=== PATIENT | male | born 1990 | race Caucasian/White ===

== ENCOUNTER 2017-03-21 00:47 | Emergency (ER) | payer MEDICAID, OTHER ==
[~2017-03-21] VITALS: Ht 188 cm; Wt 77.3 kg
[2017-03-21 00:57] VITALS: BP 125/80; PULSE 99; RESP 18; O2SAT 98
[2017-03-21 02:19] LABS: BASOPHILS % (AUTO) 0.7 % (0-3); EOSINOPHILS % (AUTO) 3.5 % (0-5); MONOCYTES % (AUTO) 7.6 % (4-12); Mean Corpuscular Hemoglobin 31.8 pg (27.0-35.0); Mean Corpuscular Volume 93.3 fL (81-100); NEUTROPHILS % (AUTO) 53.4 % (40-74); Platelet Count 268 bil/L (150-400)
--- NOTE | 2017-03-21 02:19 | ED.REPORT ---
HPI-Overdose/Alcohol Toxicity Date of Service Mar 21, 2017 ED Provider: Jerry Szymanski MD Pt is a 26 year old male with a history of alcohol withdrawal-induced seizures who presents to the ED for a medical exam prior to admission to [facility] for alcohol detox today. He c/o headache. He denies shaking and any other symptoms. The pt reports that his last drink was at 20:00. Nursing Notes Stated Complaint: DETOX Chief Complaint: Substance Abuse Nursing Notes Reviewed: Yes Allergies: Coded Allergies: No Known Allergies (Unverified , 03/21/17) General Time Seen by Provider: : Chief Complaint Other (Detox) Hx Obtained From: Patient Arrived By: Walk-in Onset Occurred: Onset unknown Symptom Duration: Since onset Severity: Current: No pain currently Severity: Maximum: No pain Recent Healthcare: No recent doctor visit, No recent hospitalization Similar Sx Previous: No Past Medical History Past Medical History Hep C Unspecified liver problems Past Surgical History Denies Smoking History Unknown if Ever Smoker Social History Alcohol Use: 3-5 per day (3-4 40 oz beers daily) Drug Use: Denies drug use Ambulatory Status Independent Review of Systems Constitutional: Denies: Fever Respiratory: Denies: Non-productive cough, Shortness of breath GI: Denies: Abdominal pain Neurologic: Reports: Headache Complete sys rev & neg: except as marked. Physical Exam Initial Vital Signs Vital Signs (First) Date Time Temp Pulse Resp B/P Pulse Ox O2 Delivery O2 Flow Rate FiO2 03/21/17 00:57 36.6 99 18 125/80 98 Room Air Initial VS: Reviewed, Vital signs normal Head / Eyes: Atraumatic, Normocephalic Neck: Supple, Full range of motion Extremities: Vascular intact, Neuro intact General/Constitutional: Awake, Cooperative Smells strongly of alcohol. Seems completely oriented and alert. Respiratory / Chest: Atraumatic, Breath sounds NL, Breath sounds = bilat Cardiovascular: Heart rate NL, Regular rhythm, Heart sounds NL Abdomen: Atraumatic, Soft, Non-tender Liver margin is non-tender and not palpable. Neurologic: Oriented X3, No motor deficits, No sensory deficits Speech is slightly slurred. Psychiatric: Affect NL, Mood NL Skin: Atraumatic, Warm, Dry, Intact No bruising or bleeding. Interpretation & Diagnostics Lab Results Interpretation Result Diagram: 03/21/1720903/21/17209 Test 03/21/17 02:10 03/21/17 04:10 White Blood Count 7.7th/mm3 (3.8-10.1) Red Blood Count 5.10mil/mm3 (4.40-5.80) Hemoglobin 16.2g/dL (13.8-17.2) Hematocrit 47.6% (41.0-50.0) Mean Corpuscular Volume 93.3fL (81-100) Mean Corpuscular Hemoglobin 31.8pg (27.0-35.0) Mean Corpuscular Hemoglobin Concent 34.0% (32.0-37.0) Red Cell Distribution Width 13.4% (12.3-15.4) Platelet Count 268bil/L (150-400) Neutrophils (%) (Auto) 53.4% (40-74) Lymphocytes (%) (Auto) 34.7% (14-46) Monocytes (%) (Auto) 7.6% (4-12) Eosinophils (%) (Auto) 3.5% (0-5) Basophils (%) (Auto) 0.7% (0-3) Prothrombin Time 10.0sec (8.1-12.5) Prothromb Time International Ratio 0.94ratio Sodium Level 142mEq/L (134-144) Potassium Level 4.3mEq/L (3.5-5.2) Chloride Level 101mEq/L (97-108) Carbon Dioxide Level 23mmol/L (18-29) Blood Urea Nitrogen 7mg/dL (6-20) Creatinine 0.84mg/dL (0.76-1.27) Estimat Glomerular Filtration Rate 117mL/min (>59) Glucose Level 92mg/dL (60-99) Calcium Level 8.9mg/dL (8.5-10.1) Magnesium Level 2.0mg/dL (1.6-2.6) Total Bilirubin 0.4mg/dL (0.0-1.2) Aspartate Amino Transf (AST/SGOT) 329U/L (0-50) Alanine Aminotransferase (ALT/SGPT) 339U/L (0-44) Alkaline Phosphatase 114U/L (25-150) Total Protein 7.9g/dL (6.4-8.4) Albumin 4.4g/dL (3.4-5.0) Lipase 28U/L (13-60) Hold Somers Top Tube Received (Received) Hold Urine Received (Received) Lab Results Interpretation: transaminitis, elev EtOH at 0.235 Re-Eval/Medical Decision Med Decision/Clinical Course 26-year-old male who has been heavy alcoholic for approximately 10 years. He has a strong desire to quit. Paramedics on [facility] arranged for him to have a bed at [facility], and he presented here for medical clearance. He has elevated transaminases consistent with his history of hep C and alcoholism. His alcohol level was 0.235. He is medically cleared for detox. He will be sent with a tapering dose of Ativan. Source of Hx: Old records Re-Evaluation/Progress : Time of Eval: 02:57 )( Re-Eval Psychiatric: Clear for alcohol rehab Re-Evaluation/Progress Note: Pt rechecked. Informed pt of plan for discharge. Pt understands and agrees with plan for discharge. F/U instructions and RTER warnings given. All questions addressed. Counseled Regarding: Diagnosis, Lab results, Need for follow-up, When/why to return to ED Discharge & Departure Impression: Primary Impression: Alcohol abuse )( Condition at Discharge: No danger to self, Clear for alcohol rehab Disposition: Home Discharge Condition All VS Reviewed: Yes Condition: Stable (ERASED) Patient Instructions: Alcohol Withdrawal (ED) Additional Instructions: Go directly to [facility]. They will assist you with your tapering dose of Ativan and with follow-up care. Referrals: [facility] Yovana Attestation Portions of this note were transcribed by Marissa Ardon. I, Dr. Szymanski personally performed the history, physical exam and medical decision-making; I reviewed and confirmed the accuracy of the information in the transcribed note. Signed by: Yovana Donald, 03/21/17 and 03:30. copies to: [facility] Jerry Szymanski MD Mar 21, 2017 02:19 Marissa Herrera Mar 21, 2017 02:20
[2017-03-21 02:32] LABS: INR 0.94 ratio
[2017-03-21] MEDS ORDERED: _LORazepam 2 MG Tablet PO SCH (02:40)
== END 2017-03-21 03:17 | disposition home or self-care (01) ==
LOC: SED 00:47
DX: F10.20 Alcohol dependence, uncomplicated (principal)

== ENCOUNTER 2017-04-06 23:31 | Emergency (ER) | payer OTHER ==
[~2017-04-06] VITALS: Ht 188 cm; Wt 77.3 kg
[2017-04-06 23:38] VITALS: BP 118/86; PULSE 98; RESP 18; O2SAT 100
--- NOTE | 2017-04-07 00:40 | ED.REPORT ---
HPI-General Illness Date of Service Apr 07, 2017 ED Provider: Jerry Szymanski MD A 26 year old male with a history of hepatitis C and alcohol abuse presents to the ED requesting detox. The pt has been drinking approximately two fifths of alcohol per day for years with brief one to two month periods of sobriety. He has withdrawal symptoms including seizures, but has successfully withdrawn outside of a hospital before. The pt is trying to achieve sobriety now because his uncle is dying and he wants to be able to be at home with him. Nursing Notes Stated Complaint: REQ DETOX Chief Complaint: Substance Abuse Nursing Notes Reviewed: Yes Allergies: Coded Allergies: No Known Allergies (Unverified , 03/21/17) General Time Seen by MD: 00:30 Chief Complaint Other (Detox request) Hx Obtained From: Patient, EMS Arrived By: Ambulance Sudden in Onset?: No Symptom Duration: Since onset Recent Healthcare: Recent doctor visit Similar Sx Previous: Yes Past Medical History Past Medical History Hep C Unspecified liver problems Past Surgical History none reported Smoking History Unknown if Ever Smoker Social History Alcohol Use: 3-5 per day Drug Use: THC Ambulatory Status Independent Review of Systems Full Review of Systems Respiratory: Denies: Non-productive cough, Shortness of breath Cardiovascular: Denies: Chest pain Musculoskeletal: Denies: Back pain, Neck pain Skin: Denies Rash Complete sys rev & neg: except as marked. Physical Exam Vital Signs Vital Signs Date Time Temp Pulse Resp B/P Pulse Ox O2 Delivery O2 Flow Rate FiO2 04/07/17 01:52 36.7 104 18 124/82 100 Room Air 04/06/17 23:38 36.5 98 18 118/86 100 Room Air Initial VS: Reviewed, Vital signs abnormal General/Constitutional: Awake, Alert smells of alcohol Head / Eyes: Atraumatic, Normocephalic, PERRL, EOMI ENT: Atraumatic, Airway patent, Mucous membranes moist Neck: Atraumatic, Supple, Full range of motion Respiratory / Chest: Atraumatic, Breath sounds NL, Breath sounds = bilat, No respiratory distress Cardiovascular: Heart rate NL, Regular rhythm, Heart sounds NL Abdomen: Atraumatic, Soft liver mildly tender Back: Atraumatic, Full range of motion Upper Extremities Upper Extremity / MS: Atraumatic, Full range of motion Lower Extremity / Pelvis / MS: Atraumatic, Full range of motion Skin: Atraumatic, Color NL, No rash, Warm, Dry Neurologic: Oriented X3, Speech NL, No motor deficits, No sensory deficits Psychiatric: Affect NL, Mood NL Re-Eval/Medical Decision Med Decision/Clinical Course 26 year old chronic alcoholic whose father is dying from lung cancer. He is trying to get to the bedside in few all up. He knows he will not be welcome there drinking. He requested was given an Ativan prepack to used to attempt to get through withdrawal and stabilize himself. Source of Hx: Old records Time of Eval: 00:30 Patient Status: Condition improved Re-Evaluation/Progress Note: Pt informed of the diagnosis and plan for discharge during the initial interview. The pt understands and agrees with the plan. All questions are addressed at this time. Counseled Regarding: Diagnosis, Need for follow-up, When/why to return to ED Discharge & Departure Primary Impression: Alcohol withdrawal Complication of substance-induced condition: uncomplicated Qualified Code: F10.230 - Alcohol dependence with withdrawal, uncomplicated Disposition: Home Discharge Condition All VS Reviewed: Yes Condition: Stable Patient Instructions: Alcohol Withdrawal (ED) Additional Instructions: Do not drink any more alcohol. Use the lorazepam (Ativan) taper as instructed on the bottle. Do not take extra, and do not mix it with alcohol. Follow-up with the ER in [place] if you have more complicated withdrawal. Referrals: [facility] Scribe Attestation Portions of this note were transcribed by Esteban Miner. I, Dr. Szymanski personally performed the history, physical exam and medical decision-making; I reviewed and confirmed the accuracy of the information in the transcribed note. Signed by: Yovana Valdivia, 04/07/2017 and 0056. copies to: [facility] Jerry Szymanski MD Apr 07, 2017 00:40 ESTEBAN MINER Apr 07, 2017 00:51
[2017-04-07] MEDS ORDERED: _LORazepam 2 MG Tablet PO SCH (01:00)
[2017-04-07 01:52] VITALS: BP 124/82; PULSE 104; RESP 18; O2SAT 100
== END 2017-04-07 01:55 | disposition home or self-care (01) ==
LOC: SED 23:31 → EDBD 23:31 → SED 04-07 01:55
DX: F10.230 Alcohol dependence with withdrawal, uncomplicated (principal)